=== PATIENT | female | born 1945 | race Caucasian/White ===

== ENCOUNTER 2022-03-27 08:16 | Day surgery (SDC) | payer OTHER, SELFPAY ==
[2022-03-16 15:07] VITALS: BMI 40.1
--- NOTE | 2022-03-22 16:28 | MHC.SHP ---
Pre-Procedural Eval Section A Date of Service: 03/22/22 The patient is an INPATIENT: No Changes since office visit: No Cold of Flu in the past 2 weeks, No New Medical Problems, No Changes in Medication and No Patient answered all questions The History & Physical has been completed within 30 days and I have reviewed it.: Yes Section B Chief Complaint: Age-related nuclear cataract, right eye Allergies: Allergies Allergy/AdvReac Type Severity Reaction Status Date / Time sulfamethoxazole Allergy Intermediate Hives Verified 03/16/22 14:54 [From ] trimethoprim [From ] Allergy Intermediate Hives Verified 03/16/22 14:54 Plan Diagnosis/Plan: Unchanged I have reviewed the history and physical and performed a pertinent physical examination on my patient. No changes have occurred unless specified. Time Spent With Patient Time: Total time managing care of this patient today ____ minutes.
--- NOTE | 2022-03-27 08:50 | HO.ANESPROP2 ---
HPI - Anesthesia Eval Consult details Narrative: 77 yo female patient for Right cataract extraction, IOL insertion PMFSH Past Medical History Medical History COPD (chronic obstructive pulmonary disease) Depression Elevated cholesterol HTN (hypertension) Hypothyroid Oxygen dependent Pre-invasive breast cancer Sleep apnea Family History Family history of problems with anesthesia: No Surgical History Surgical History H/O colonoscopy History of total bilateral knee replacement Hx of gastric bypass Hx of partial thyroidectomy Hx of right mastectomy History of Problems with Anesthesia: No Social History Social History Are you a primary dialysis patient care technician to a significant other at home: No Do you presently have visiting nurse or other home services: Yes (sister is her MEDICAL EQUIPMENT REPAIR TECHNICIAN) Patient Tobacco Use Status: Former Tobacco user Quit Date: age 46 Tobacco use type: Cigarette Use of substances other than those prescribed or required for medical reasons: No Have you been hit, kicked, punched, or otherwise hurt by someone within the past year? If so, by whom?: No Advance Directives: No Advance Directives Information Provided: Yes (brochure mailed) Advance Directives on File: No Recently lost weight without trying: No Eating poorly because of decreased appetite: No Nutrition Risks: Surgical patient >75years Poor oral hygiene: No (upper & lower full dentures) Meds Allergies Allergy/AdvReac Type Severity Reaction Status Date / Time sulfamethoxazole Allergy Intermediate Hives Verified 03/16/22 14:54 [From ] trimethoprim [From ] Allergy Intermediate Hives Verified 03/16/22 14:54 Active Medications: Current Medications Povidone Iodine (Povidone Iodine 5 % Ophth Soln 30 Ml Bottle) 1 appl EYE-RIGHT PREOP PRN PRN Reason: Pre-Op Surgical Implant Prophy Home Medications Medication Instructions Recorded Confirmed Last Taken Type acetaminophen 325 mg tablet 650 mg PO Q4H PRN Pain 03/16/22 03/16/22 Unknown History (Tylenol) atorvastatin 80 mg tablet 80 mg PO BEDTIME 03/16/22 03/16/22 Unknown History bupropion HCl 200 mg tablet,12 hr 200 mg PO BID 03/16/22 03/16/22 Unknown History sustained-release donepezil 5 mg tablet 5 mg PO BEDTIME 03/16/22 03/16/22 Unknown History fluticasone fur. 200 mcg-umeclid 1 inh inhalation DAILY 03/16/22 03/16/22 Unknown History 62.5 mcg-vilant 25 mcg inhalat.powder (Trelegy Ellipta) furosemide 20 mg tablet 20 mg PO DAILY 03/16/22 03/16/22 Unknown History gabapentin 100 mg capsule 200 mg PO TID 03/16/22 03/16/22 Unknown History ipratropium 20 mcg-albuterol 100 1 puff inhalation Q6H PRN Wheezing 03/16/22 03/16/22 Unknown History mcg/actuation mist for inhalation (Combivent Respimat) levothyroxine 200 mcg tablet 200 mcg PO DAILY 03/16/22 03/16/22 Unknown History lisinopril 10 mg tablet 10 mg PO BEDTIME 03/16/22 03/16/22 Unknown History multivitamin 1 tab PO DAILY 03/16/22 03/16/22 Unknown History naproxen 375 mg tablet 375 mg PO BID 03/16/22 03/16/22 Unknown History potassium chloride 10 mEq 10 meq PO BID 03/16/22 03/16/22 Unknown History tablet,extended release topiramate 100 mg tablet 100 mg PO BID 03/16/22 03/16/22 Unknown History Exam Exam Date and Time: March 27, 2022 0850 Height,Weight and Vital Signs: Height 5 ft 4 in Weight 106.141 kg Vital Signs Temp Pulse Resp BP Pulse Ox O2 Del Method 03/27/22 09:06 97 F 63 20 144/54 H 94 Room Air Airway Mallampati Class: II TM Dist: >3cm Neck ROM: Full Denture: Upper and Lower Heart: RRR Lungs: CTAB Assessment and Plan Assessment Anesthesia Assessment: Anesthesia Plan Discussed and Chart Reviewed Final Anesthetic Review Family History of Problems with Anesthesia: No History of Problems with Anesthesia: No NPO: Yes ASA Class: III Final Preanesthetic Review: No Changes in Pt Med Stat, Meds/Allgs Chart Reviewed, Consent Obtained/Reviewed and Anes Risks/Benef Reviewed Patient Risk: Intermediate Procedure Risk: Low Assessment/Block/Sedation in SS: Assess/Block/Sedation-SS Anesthetic Plan Anesthetic Plan: MAC: Disposition: Standard PACU
[2022-03-27 09:06] VITALS: BP 144/54; PULSE 63; RESP 20; TEMP 36.1; O2SAT 94
[2022-03-27] MEDS: Tetracaine HCl/PF 0.5% Oph Sol 4 ML DROPS 1 DROP EYE-RIGHT (09:11)
[2022-03-27] MEDS: Cyclopentolate 1 % Ophth Sol 2 ML DRPBTL 1 DROP EYE-RIGHT ×3 (09:11→09:14)
[2022-03-27] MEDS: Ketorolac Tromethamine 0.5% Op 5 ML DROPS 1 DROP EYE-RIGHT ×3 (09:11→09:14)
[2022-03-27] MEDS: Phenylephrine HCL 2.5% Oph SoL 2 ML BOTTLE 1 DROP EYE-RIGHT ×3 (09:11→09:14)
[2022-03-27] MEDS: Tropicamide 1 % Ophth Sol 3 ML BTL 1 DROP EYE-RIGHT ×3 (09:11→09:14)
[2022-03-27] MEDS: Lactated Ringers 500 ML 20 ML IVCONT (09:23)
--- NOTE | 2022-03-27 09:55 | HO.PNOPHT ---
Ophthalmology Procedure Procedure Date of Service: 03/27/22 Ophthalmology Viscoelastic: Darren Rameyt Dual Pack Pro Ophthalmology Lenses: TECPREMA [id number] (25) Procedure Notes: PREOPERATIVE DIAGNOSIS: Decreased visual acuity right eye secondary to cataract POSTOPERATIVE DIAGNOSIS: Same PROCEDURE: Right cataract extraction with intraocular lens insertion SURGEON: Emanuel Shelton M.D. ANESTHESIA: Topical/MAC ESTIMATED BLOOD LOSS: None COMPLICATIONS: None After obtaining informed consent, the patient was brought to the operating room suite and placed in the supine position. After adequate sedation per anesthesia, topical drops of Tetracaine were given to the right eye. The eye was then prepped and draped in the usual sterile fashion. The operating room microscope was then positioned over the operative eye and a lid speculum placed. A paracentesis was created. Viscoelastic was then instilled into the anterior chamber. A three plane incision was then created temporally, utilizing a 2.85 mm keratome. Capsulotomy forceps were then utilized to create a circular tear capsulotomy. Hydrodissection and hydrodelineation were carried out until adequate mobilization of the nucleus occurred. Phacoemulsification was then utilized to remove the dense central nucleus followed by removal of the cortical material utilizing the automated aspiration irrigation unit. Viscoelastic was instilled into the posterior capsular bag followed by placement of a posterior chamber intraocular lens without difficulty. The residual Viscoelastic was then removed utilizing the automated IA machine. The wound was checked and found to be watertight. The patient tolerated the procedure well and the lid speculum was removed. Intracameral injection of Vigamox 0.1 mL followed by a subtenon injection of Kenalog-40 0.2 mL were administered. The patient will be seen in the a.m.
[2022-03-27 10:42] VITALS: BP 121/66; PULSE 57; RESP 18; TEMP 36.1; O2SAT 92
== END 2022-03-27 10:57 | disposition home or self-care (01) ==
PROVIDERS: PCP Internal Medicine; Visit Provider Ophthalmology
PROC: (CPT 66985; principal; 2022-03-27 10:30)
DX: H25.11 Age-related nuclear cataract, right eye (principal); H52.4 Presbyopia; I10 Essential (primary) hypertension; E78.00 Pure hypercholesterolemia, unspecified; J44.9 Chronic obstructive pulmonary disease, unspecified; G47.33 Obstructive sleep apnea (adult) (pediatric); Z85.3 Personal history of malignant neoplasm of breast; Z79.51 Long term (current) use of inhaled steroids; Z99.81 Dependence on supplemental oxygen; Z79.899 Other long term (current) drug therapy; Z88.2 Allergy status to sulfonamides; Z98.84 Bariatric surgery status; Z87.891 Personal history of nicotine dependence
CPT/HCPCS: 66984; J2250; J3301; V2632

== ENCOUNTER 2022-04-10 08:40 | Day surgery (SDC) | payer OTHER, SELFPAY ==
[2022-03-16 15:12] VITALS: BMI 40.1
--- NOTE | 2022-04-06 09:37 | HO.PNOPHT ---
Ophthalmology Procedure Procedure Date of Service: 04/06/22 Ophthalmology Viscoelastic: Healon Duet Dual Pack Pro
--- NOTE | 2022-04-10 09:24 | HO.ANESPROP2 ---
[facility] Past Medical History Medical History COPD (chronic obstructive pulmonary disease) Depression Elevated cholesterol HTN (hypertension) Hypothyroid Oxygen dependent Pre-invasive breast cancer Sleep apnea Functional capacity: independent ambulation Patient : No Family History Family history of problems with anesthesia: No Surgical History Surgical History H/O colonoscopy History of total bilateral knee replacement Hx of gastric bypass Hx of partial thyroidectomy Hx of right mastectomy History of Problems with Anesthesia: No Social History Social History Are you a primary campground caretaker to a significant other at home: No Do you presently have visiting nurse or other home services: Yes (sister is her CUSTOMER SALES CONSULTANT) Patient Tobacco Use Status: Former Tobacco user Quit Date: age 46 Tobacco use type: Cigarette Use of substances other than those prescribed or required for medical reasons: No Have you been hit, kicked, punched, or otherwise hurt by someone within the past year? If so, by whom?: No Advance Directives: No Advance Directives Information Provided: Yes (brochure mailed) Advance Directives on File: No Recently lost weight without trying: No Eating poorly because of decreased appetite: No Nutrition Risks: Surgical patient >75years Poor oral hygiene: No (upper & lower full denture) Meds Allergies Allergy/AdvReac Type Severity Reaction Status Date / Time sulfamethoxazole Allergy Intermediate Hives Verified 03/16/22 14:54 [From ] trimethoprim [From ] Allergy Intermediate Hives Verified 03/16/22 14:54 Active Medications: Current Medications Cyclopentolate HCl (Cyclopentolate 1 % Ophth Debora 2 Ml Drpbtl) 1 drop EYE-LEFT Q5M DARSHAN Stop: 04/10/22 09:26 Lactated Ringer's (Lr) 500 mls @ 50 mls/hr IV .Q10H DARSHAN Stop: 04/10/22 19:14 Ketorolac Tromethamine (Ketorolac Tromethamine 0.5% Op 5 Ml Drops) 1 drop EYE-LEFT Q5M DARSHAN Stop: 04/10/22 09:26 Phenylephrine HCl (Phenylephrine Hcl 2.5% Oph Debora 2 Ml Bottle) 1 drop EYE-LEFT Q5M DARSHAN Stop: 04/10/22 09:26 Povidone Iodine (Povidone Iodine 5 % Ophth Soln 30 Ml Bottle) 1 appl EYE-LEFT PREOP PRN PRN Reason: Pre-Op Surgical Implant Prophy Tropicamide (Tropicamide 1 % Ophth Debora 3 Ml Btl) 1 drop EYE-LEFT Q5M [facility] Stop: 04/10/22 09:26 Home Medications Medication Instructions Recorded Confirmed Last Taken Type acetaminophen 325 mg tablet 650 mg PO Q4H PRN Pain 03/16/22 03/16/22 Unknown History (Tylenol) atorvastatin 80 mg tablet 80 mg PO BEDTIME 03/16/22 03/16/22 Unknown History bupropion HCl 200 mg tablet,12 hr 200 mg PO BID 03/16/22 03/16/22 Unknown History sustained-release donepezil 5 mg tablet 5 mg PO BEDTIME 03/16/22 03/16/22 Unknown History fluticasone fur. 200 mcg-umeclid 1 inh inhalation DAILY 03/16/22 03/16/22 Unknown History 62.5 mcg-vilant 25 mcg inhalat.powder (Trelegy Ellipta) furosemide 20 mg tablet 20 mg PO DAILY 03/16/22 03/16/22 Unknown History gabapentin 100 mg capsule 200 mg PO TID 03/16/22 03/16/22 Unknown History ipratropium 20 mcg-albuterol 100 1 puff inhalation Q6H PRN Wheezing 03/16/22 03/16/22 Unknown History mcg/actuation mist for inhalation (Combivent Respimat) levothyroxine 200 mcg tablet 200 mcg PO DAILY 03/16/22 03/16/22 Unknown History lisinopril 10 mg tablet 10 mg PO BEDTIME 03/16/22 03/16/22 Unknown History multivitamin 1 tab PO DAILY 03/16/22 03/16/22 Unknown History naproxen 375 mg tablet 375 mg PO BID 03/16/22 03/16/22 Unknown History potassium chloride 10 mEq 10 meq PO BID 03/16/22 03/16/22 Unknown History tablet,extended release topiramate 100 mg tablet 100 mg PO BID 03/16/22 03/16/22 Unknown History Exam Exam Date and Time: April 10, 2022923 Height,Weight and Vital Signs: Height 5 ft 4 in Weight 106.141 kg Airway Mallampati Class: II TM Dist: >3cm Neck ROM: Full Partial: Lower Heart: RRR Lungs: CTA Assessment and Plan Final Anesthetic Review Family History of Problems with Anesthesia: No History of Problems with Anesthesia: No ASA Class: III Final Preanesthetic Review: Meds/Allgs Chart Reviewed, Consent Obtained/Reviewed and Anes Risks/Benef Reviewed Patient Risk: Intermediate Procedure Risk: Low Anesthetic Plan Anesthetic Plan: MAC: Disposition: Standard PACU
[2022-04-10 09:27] VITALS: BP 138/63; PULSE 60; RESP 14; TEMP 36.4; O2SAT 91
[2022-04-10] MEDS: Tetracaine HCl/PF 0.5% Oph Sol 4 ML DROPS 1 DROP EYE-LEFT (09:34)
[2022-04-10] MEDS: Tropicamide 1 % Ophth Sol 3 ML BTL 1 DROP EYE-LEFT ×3 (09:35→09:43)
[2022-04-10] MEDS: Cyclopentolate 1 % Ophth Sol 2 ML DRPBTL 1 DROP EYE-LEFT ×3 (09:36→09:45)
[2022-04-10] MEDS: Ketorolac Tromethamine 0.5% Op 5 ML DROPS 1 DROP EYE-LEFT ×3 (09:37→09:48)
[2022-04-10] MEDS: Phenylephrine HCL 2.5% Oph SoL 2 ML BOTTLE 1 DROP EYE-LEFT ×3 (09:38→09:48)
[2022-04-10 09:49] VITALS: O2SAT 98
[2022-04-10] MEDS: Lactated Ringers 500 ML 50 ML IV (09:56)
--- NOTE | 2022-04-10 10:23 | HO.PNOPHT ---
Ophthalmology Procedure Procedure Date of Service: 04/10/22 Ophthalmology Viscoelastic: Healwest Duet Dual Pack Pro Ophthalmology Lenses: TECPREMA [id number] (25) Procedure Notes: PREOPERATIVE DIAGNOSIS: Decreased visual acuity left eye secondary to cataract POSTOPERATIVE DIAGNOSIS: Same PROCEDURE: Left cataract extraction with intraocular lens insertion SURGEON: Emanuel Shelton M.D. ANESTHESIA: Topical/MAC ESTIMATED BLOOD LOSS: None COMPLICATIONS: None After obtaining informed consent, the patient was brought to the operation room suite and placed in the supine position. After adequate sedation per anesthesia, topical drops of Tetracaine were given to the left eye. The eye was then prepped and draped in the usual sterile fashion. The operating room microscope was then positioned over the operative eye and a lid speculum placed. A paracentesis was created. Viscoelastic was then instilled into the anterior chamber. A three plane incision was then created temporally, utilizing a 2.85 mm keratome. Capsulotomy forceps were then utilized to create a circular tear capsulotomy. Hydrodissection and hydrodelineation were carried out until adequate mobilization of the nucleus occurred. Phacoemulsification was then utilized to remove the dense central nucleus followed by removal of the cortical material utilizing the automated aspiration irrigation unit. Viscoat elastic was instilled into the posterior capsular bag followed by placement of a posterior chamber intraocular lens without difficulty. The residual Viscoat elastic was then removed utilizing the automated IA machine. The wound was check and found to be watertight. The patient tolerated the procedure well and the lid speculum was removed. Intracameral injection of Vigamox 0.1 mL followed by a subtenon injection of Kenalog-40 0.2 mL were administered. The patient will be seen in the a.m.
--- NOTE | 2022-04-10 10:32 | HO.ANESPROP2 ---
[facility] [place] Past Medical History Medical History COPD (chronic obstructive pulmonary disease) Depression Elevated cholesterol HTN (hypertension) Hypothyroid Oxygen dependent Pre-invasive breast cancer Sleep apnea Functional capacity: independent ambulation Family History Family history of problems with anesthesia: No Surgical History Surgical History H/O colonoscopy History of total bilateral knee replacement Hx of gastric bypass Hx of partial thyroidectomy Hx of right mastectomy History of Problems with Anesthesia: No Social History Social History Are you a primary pet care attendant to a significant other at home: No Do you presently have visiting nurse or other home services: Yes (sister is her AUTO SEAT COVER INSTALLER) Patient Tobacco Use Status: Former Tobacco user Quit Date: age 46 Tobacco use type: Cigarette Use of substances other than those prescribed or required for medical reasons: No Have you been hit, kicked, punched, or otherwise hurt by someone within the past year? If so, by whom?: No Advance Directives: No Advance Directives Information Provided: Yes (brochure mailed) Advance Directives on File: No Recently lost weight without trying: No Eating poorly because of decreased appetite: No Nutrition Risks: Surgical patient >75years Patient : No Poor oral hygiene: No (upper & lower full denture) Meds Allergies Allergy/AdvReac Type Severity Reaction Status Date / Time sulfamethoxazole Allergy Intermediate Hives Verified 03/16/22 14:54 [From ] trimethoprim [From ] Allergy Intermediate Hives Verified 03/16/22 14:54 Active Medications: Current Medications Lactated Ringer's (Lr) 500 mls @ 50 mls/hr IV .Q10H DARSHAN Stop: 04/10/22 19:14 Last Admin: 04/10/22 09:56 Dose: 50 mls/hr Povidone Iodine (Povidone Iodine 5 % Ophth Soln 30 Ml Bottle) 1 appl EYE-LEFT PREOP PRN PRN Reason: Pre-Op Surgical Implant Prophy Home Medications Medication Instructions Recorded Confirmed Last Taken Type acetaminophen 325 mg tablet 650 mg PO Q4H PRN Pain 03/16/22 03/16/22 Unknown History (Tylenol) atorvastatin 80 mg tablet 80 mg PO BEDTIME 03/16/22 03/16/22 Unknown History bupropion HCl 200 mg tablet,12 hr 200 mg PO BID 03/16/22 03/16/22 Unknown History sustained-release donepezil 5 mg tablet 5 mg PO BEDTIME 03/16/22 03/16/22 Unknown History fluticasone fur. 200 mcg-umeclid 1 inh inhalation DAILY 03/16/22 03/16/22 Unknown History 62.5 mcg-vilant 25 mcg inhalat.powder (Trelegy Ellipta) furosemide 20 mg tablet 20 mg PO DAILY 03/16/22 03/16/22 Unknown History gabapentin 100 mg capsule 200 mg PO TID 03/16/22 03/16/22 Unknown History ipratropium 20 mcg-albuterol 100 1 puff inhalation Q6H PRN Wheezing 03/16/22 03/16/22 Unknown History mcg/actuation mist for inhalation (Combivent Respimat) levothyroxine 200 mcg tablet 200 mcg PO DAILY 03/16/22 03/16/22 Unknown History lisinopril 10 mg tablet 10 mg PO BEDTIME 03/16/22 03/16/22 Unknown History multivitamin 1 tab PO DAILY 03/16/22 03/16/22 Unknown History naproxen 375 mg tablet 375 mg PO BID 03/16/22 03/16/22 Unknown History potassium chloride 10 mEq 10 meq PO BID 03/16/22 03/16/22 Unknown History tablet,extended release topiramate 100 mg tablet 100 mg PO BID 03/16/22 03/16/22 Unknown History Exam Exam Date and Time: April 10, 2022 1032 Height,Weight and Vital Signs: Height 5 ft 4 in Weight 106.141 kg Last Vital Signs Temp 97.6 F 04/10/22 09:27 Pulse 60 04/10/22 09:27 Resp 14 04/10/22 09:27 BP 138/63 04/10/22 09:27 Pulse Ox 98 04/10/22 09:49 O2 Del Method 04/10/22 09:49 O2 Flow Rate 2 04/10/22 09:49 Airway Mallampati Class: III TM Dist: >3cm Denture: Lower Heart: RRR Lungs: CTA Assessment and Plan Final Anesthetic Review Family History of Problems with Anesthesia: No History of Problems with Anesthesia: No ASA Class: III Final Preanesthetic Review: Meds/Allgs Chart Reviewed, Consent Obtained/Reviewed and Anes Risks/Benef Reviewed Patient Risk: Low Procedure Risk: Low Anesthetic Plan Anesthetic Plan: MAC: Disposition: Standard PACU
[2022-04-10 10:46] VITALS: BP 134/60; PULSE 58; RESP 16; TEMP 36.3; O2SAT 95
--- NOTE | 2022-04-10 11:54 | HO.POSTANES ---
Post Anesthesia Evaluation Post Anesthesia Evaluation Vital Signs: Vital Signs Temp Pulse Resp BP Pulse Ox O2 Del Method O2 Flow Rate 04/10/22 10:46 97.4 F 58 16 134/60 95 Room Air 04/10/22 09:49 98 Nasal Cannula 2 04/10/22 09:27 97.6 F 60 14 138/63 91 L Room Air Anesthesia: Monitored Mental Status: Awake Pain Control: Satisfactory Nausea/Vomiting: None Hydration: Adequate Anesthesia-Related Issues: No Anes. Related Issues
== END 2022-04-10 10:59 | disposition home or self-care (01) ==
PROVIDERS: PCP Internal Medicine; Visit Provider Ophthalmology
PROC: (CPT 66985; principal; 2022-04-10 10:30)
DX: H25.12 Age-related nuclear cataract, left eye (principal); H52.4 Presbyopia; H18.413 Arcus senilis, bilateral; I10 Essential (primary) hypertension; J44.9 Chronic obstructive pulmonary disease, unspecified; G47.33 Obstructive sleep apnea (adult) (pediatric); Z99.81 Dependence on supplemental oxygen; Z79.51 Long term (current) use of inhaled steroids; Z79.899 Other long term (current) drug therapy; Z88.2 Allergy status to sulfonamides; Z85.3 Personal history of malignant neoplasm of breast; Z90.11 Acquired absence of right breast and nipple; Z98.84 Bariatric surgery status; Z87.891 Personal history of nicotine dependence
CPT/HCPCS: 66984; J2250; J3301; V2632